=== PATIENT | female | born 1985 | race Caucasian/White ===

== ENCOUNTER 2021-03-02 01:37 | Emergency (ER) | payer BC, SELFPAY ==
--- NOTE | ~2021-03-02 | US_ITS ---
EXAMINATION: US pelvic complete w TV DATE: 03/02/2021 03:49 INDICATION: Right adnexal pain TECHNIQUE: Multiple transabdominal and endovaginal sonographic images of the pelvis were obtained. COMPARISON: None. FINDINGS: The uterus measures 7.0 x 3.6 x 4.1 cm. The IUD appears to be in expected position. The end ometrial complex measures 5 mm. The right ovary measures 2.8 x 1.6 x 1.5 cm. The left ovary measures 3.8 x 2.5 x 2.6 cm. There is a 2.1 x 1.6 x 1.9 cm cystic lesion of the left ovary with reticular inte rnal echoes, consistent with a hemorrhagic cyst. There is normal vascular flow in the ovaries. There is no free fluid in the pelvis. IMPRESSION: 1. No sonographic correlate for the patient's symptoms. Reviewed, dictated and finalized at location A.
[2021-03-02 01:41] VITALS: BP 110/81; PULSE 77; RESP 24; TEMP 36.1; O2SAT 100
[2021-03-02 02:04] LABS: Basophils Percent Auto 0.1 % (0.2-1.2); Eosinophils Absolute Auto 0.1 K/mm3 (0-0.3); Eosinophils Percent Auto 1.1 % (0-4.4); Hematocrit 40.1 % (37.0-47.0); Hemoglobin 12.9 g/dL (12.0-15.0); Immature Granulocyte Absolute 0.03 K/mm3 (0.00-0.031); Immature Granulocyte Percent A 0.3 % (0-0.5); Lymphocytes Absolute Auto 3.04 K/mm3 (0.9-3.2); Lymphocytes Percent Auto 31.1 % (18.3-44.2); Mean Corpuscular HGB Conc 32.2 g/dl (32-36); Mean Corpuscular Hemoglobin 29.9 pg (26-34); Mean Platelet Volume 10.1 fl (7.4-10.4); Monocytes Absolute Auto 0.6 K/mm3 (0.1-0.6); Monocytes Percent Auto 5.6 % (2.6-8.5); Neutrophils Percent Auto 61.8 % (45.5-73.1); Platelet Count Result 228 k/mm3 (150-375); Red Blood Count 4.31 M/mm3 (4.2-5.4); Red Cell Distribution Width 12.4 % (11.5-14.5); White Blood Count 9.8 K/mm3 (4.5-10.0)
[2021-03-02 02:13] LABS: Alanine Aminotransferase 14 U/L (4-35); Albumin Level 4.3 g/dL (3.5-5.1); Alkaline Phosphatase 57 U/L (38-126); Anion Gap 12 mmol/L (8-16); Aspartate Amino Transferase 18 U/L (14-36); Bilirubin,Total 0.2 mg/dL (0.2-1.3); Blood Urea Nitrogen 12 mg/dL (7-17); Calcium 9.2 mg/dL (8.4-10.2); Carbon Dioxide 25 mmol/L (22-30); Chloride 102 mmol/L (98-107); Estimated CRCL calculation 87 ml/min; Estimated Glomerular Filt Rate > 60; Glucose 126 mg/dL (65-110); Lipase 94 U/L (23-300); Potassium 3.6 mmol/L (3.4-5.0); Sodium 139 mmol/L (137-145)
[2021-03-02] MEDS: MORPHINE SULFATE (*CRX) 4 MG/ML INJ IV PUSH (02:18)
[2021-03-02] MEDS: ONDANSETRON INJ 4 MG/2 ML VIAL IV PUSH (02:19)
--- NOTE | 2021-03-02 02:34 | PC.NURSE ---
Pt has tried twice to provide urine preg, pt unable to void. States would like to try one more time and if unsuccessful will consent to straight cath.
[2021-03-02 03:05] VITALS: BP 109/74; PULSE 70; RESP 18; O2SAT 100
[2021-03-02 03:09] LABS: Add Urine Microscopic? YES; Appearance Urine Clear (Clear); Bacteria Urine Trace /hpf; Bilirubin Urine Negative (Negative); Blood Urine Negative (Negative); Color Urine Yellow (Yellow); Glucose Urine UA Negative (Negative); Ketones Urine Negative (Negative); Leukocyte Esterase Ur Negative LEU/UL (Negative); Mucus Urine Moderate /lpf; Nitrate Urine Negative (Negative); Protein Urine 1+ mg/dL (Negative); Squamous Epithelial Cell Urine Rare /hpf (Few); Urobilinogen Urine Negative mg/dL (<2.0); WBC Urine 0-3 /hpf
--- NOTE | 2021-03-02 04:27 | ED.GENADULT ---
HPI - General Adult General Chief complaint: [employer] NURSE Stated complaint: pelvic cramping (has IUD) Time Seen by Provider: 03/02/21 01:46 History of Present Illness HPI narrative: Patient is a 36-year-old female who presents ER with sudden onset lower abdominal pain. Right-sided. Pubic. No radiation. Sharp. Waxes and wanes in intensity. No urinary frequency urgency or dysuria. No vaginal bleeding or vaginal discharge. Patient does have an IUD. Pain worse with palpation or movement. Sexually active with one partner and not concerned about sexually transmitted infection. No vaginal discharge. Related Data Allergies Allergy/AdvReac Type Severity Reaction Status Date / Time erythromycin base Allergy Rash Verified 03/02/21 01:45 [From Erythrocin] Review of Systems Review of Systems: All systems reviewed & are unremarkable except as noted in HPI and below Constitutional: Constitutional: Denies chills, Denies fever(s) and Denies weakness Cardiovascular: Cardiovascular: Denies chest pain, Denies rapid heart rate and Denies radiating jaw, neck or arm pain Gastrointestinal: Gastrointestinal: Reports abdominal pain, Denies diarrhea, Denies nausea and Denies vomiting Genitourinary: Genitourinary: Denies abnormal vaginal bleeding, Denies nocturia, Denies dysuria, Reports pelvic pain and Denies vaginal discharge [facility] Past Medical History Medical History (Updated 03/02/21 @ 05:17 by Gregory Nicole MD) Healthy female adult Surgical History Surgical History (Updated 03/02/21 @ 04:29 by Gregory Nicole MD) History of section Social History Social History (Updated 03/02/21 @ 04:29 by Gregory Nciole MD) Smoking status: Never smoker Exam Narrative: GENERAL: Well-appearing, well-nourished, and in no acute distress. HEAD: Normocephalic, atraumatic. CHEST: Clear to auscultation. No respiratory distress. HEART: Regular rate and rhythm. Normal peripheral pulses. ABDOMEN: Soft, tender palpation right lower quadrant but more right pelvic in nature, nondistended. : Normal external genitalia, unremarkable appearing cervix without vaginal bleeding or vaginal discharge. Moderate discomfort with bimanual examination worse on the right than the left. EXTREMITIES: Normal range of motion. No edema. SKIN: Warm, dry, no rash. NEURO: Alert and oriented x3. PSYCH: Normal mood and affect. Course Course Emergency Course: Pain improved. Informed results. Discharge home. Vital Signs Vital signs: Vital Signs Temperature 97.0 F L 03/02/21 01:41 Pulse Rate 77 03/02/21 01:41 Respiratory Rate 24 H 03/02/21 01:41 Blood Pressure 110/81 03/02/21 01:41 Pulse Oximetry 100 03/02/21 01:41 Temperature 97.0 F L 03/02/21 01:41 Pulse Rate 61 03/02/21 04:45 Respiratory Rate 18 03/02/21 04:45 Blood Pressure 112/75 03/02/21 04:45 Pulse Oximetry 100 03/02/21 04:45 Medical Decision Making Vital Signs Vital Signs: Vital Signs Temperature 97.0 F L 03/02/21 01:41 Pulse Rate 77 03/02/21 01:41 Respiratory Rate 24 H 03/02/21 01:41 Blood Pressure 110/81 03/02/21 01:41 Pulse Oximetry 100 03/02/21 01:41 Temperature 97.0 F L 03/02/21 01:41 Pulse Rate 61 03/02/21 04:45 Respiratory Rate 18 03/02/21 04:45 Blood Pressure 112/75 03/02/21 04:45 Pulse Oximetry 100 03/02/21 04:45 Lab Data Result diagrams: 03/02/21 01:53 03/02/21 01:53 Labs: Lab Results 03/02/21 03/02/21 03/02/21 Range/Units 01:53 01:53 02:52 WBC 9.8 (4.5-10.0) K/mm3 RBC 4.31 (4.2-5.4) M/mm3 Hgb 12.9 (12.0-15.0) g/dL Hct 40.1 (37.0-47.0) % MCV 93.0 (80-100) fl MCH 29.9 (26-34) pg MCHC 32.2 (32-36) g/dl RDW 12.4 (11.5-14.5) % Plt Count 228 (150-375) k/mm3 MPV 10.1 (7.4-10.4) fl Immature Gran % (Auto) 0.3 (0-0.5) % Neut % (Auto) 61.8 (45.5-73.1) % Lymph % (Auto) 31.1 (18.3-44.2) % Gilchrist % (Auto
[2021-03-02 04:45] VITALS: BP 112/75; PULSE 61; RESP 18; O2SAT 100
[2021-03-02 05:24] VITALS: BP 109/77; PULSE 69; RESP 16; O2SAT 100
== END 2021-03-02 05:27 | disposition home or self-care (01) ==
PROVIDERS: Emergency Provider Emergency Medicine; PCP Physician Assistant
DX: N83.8 Other noninflammatory disorders of ovary, fallopian tube and broad ligament (principal)
CPT/HCPCS: 36415; 51701; 76830; 76856; 80053; 81001; 81025; 83690; 85025; 96374; 96375; 99284; J2270; J2405

== ENCOUNTER 2022-02-22 12:29 | Emergency (ER) | payer BC, SELFPAY ==
--- NOTE | ~2022-02-22 | CT_ITS ---
EXAMINATION: CT abdomen pelvis w con DATE: 02/22/2022 15:50 INDICATION: Right lower quadrant abdominal pain. TECHNIQUE: Computed tomography (CT) of the abdomen and pelvis was performed with 100 mL Omnipaque-350 intravenous contrast. Automated exposure control and iterative reconstruction technique were employe d. The dose-length product was 397.65 mGy-cm. COMPARISON: None FINDINGS: Lung bases are clear. Heart size is normal. No pericardial or pleural effusion. Several well-defined low-attenuation hepatic cysts measuring up to 1.5 cm. Spleen, pancreas, bilateral adrenal glands and kidneys are normal. Bowels including the appendix are normal. Bladder, anteverted uterus and left adn exa are unremarkable. 2.6 cm right adnexal cyst/follicle. Small amount of likely physiologic free flu id in the pelvis. No abscess or free intraperitoneal gas. Small fat-containing umbilical hernia. No p athologically enlarged abdominal or pelvic lymphadenopathy. Bones are unremarkable. IMPRESSION: 1. 2.6 cm right adnexal cyst/follicle and small amount of likely physiologic free fluid in the cul-de -sac. The 2. No acute intra-abdominal/pelvic process with normal appendix. Reviewed, dictated and finalized at location A. IMPRESSION: 1. 2.6 cm right adnexal cyst/follicle and small amount of likely physiologic fr ee fluid in the cul-de-sac. The 2. No acute intra-abdominal/pelvic process with normal appendix.
[2022-02-22 12:45] VITALS: BP 117/74; PULSE 79; RESP 14; TEMP 36.4; O2SAT 100
[2022-02-22 12:54] LABS: Basophils Percent Auto 0.2 % (0.2-1.2); Eosinophils Absolute Auto 0.1 K/mm3 (0-0.3); Eosinophils Percent Auto 1.1 % (0-4.4); Hematocrit 38.6 % (37.0-47.0); Hemoglobin 12.4 g/dL (12.0-15.0); Immature Granulocyte Absolute 0.02 K/mm3 (0.00-0.031); Immature Granulocyte Percent A 0.3 % (0-0.5); Lymphocytes Absolute Auto 1.68 K/mm3 (0.9-3.2); Lymphocytes Percent Auto 26.5 % (18.3-44.2); Mean Corpuscular HGB Conc 32.1 g/dl (32-36); Mean Corpuscular Hemoglobin 30.6 pg (26-34); Mean Corpuscular Volume 95.3 fl (80-100); Monocytes Absolute Auto 0.4 K/mm3 (0.1-0.6); Monocytes Percent Auto 5.7 % (2.6-8.5); Neutrophils Absolute Auto 4.2 K/mm3 (1.3-6.7); Neutrophils Percent Auto 66.2 % (45.5-73.1); Platelet Count Result 239 k/mm3 (150-375); Red Blood Count 4.05 M/mm3 (4.2-5.4); Red Cell Distribution Width 12.5 % (11.5-14.5); White Blood Count 6.3 K/mm3 (4.5-10.0)
[2022-02-22 13:04] LABS: Alanine Aminotransferase 11 U/L (6-35); Albumin Level 4.6 g/dL (3.5-5.1); Alkaline Phosphatase 61 U/L (38-126); Anion Gap 9 mmol/L (8-16); Aspartate Amino Transferase 19 U/L (14-36); Bilirubin,Total 0.4 mg/dL (0.2-1.3); Blood Urea Nitrogen 11 mg/dL (7-17); Carbon Dioxide 27 mmol/L (22-30); Chloride 101 mmol/L (98-107); Estimated CRCL calculation 99 ml/min; Estimated Glomerular Filt Rate > 60; Glucose 98 mg/dL (65-110); Lipase 70 U/L (23-300); Potassium 3.8 mmol/L (3.4-5.0); Sodium 137 mmol/L (137-145)
[2022-02-22 13:27] LABS: Appearance Urine Slightly Cloudy (Clear); Bilirubin Urine Negative (Negative); Color Urine Yellow (Yellow); Glucose Urine UA Negative (Negative); Ketones Urine Negative (Negative); Leukocyte Esterase Ur Negative LEU/UL (Negative); Nitrate Urine Negative (Negative); Protein Urine Negative (Negative); Urobilinogen Urine 0.2 mg/dL (<2.0)
[2022-02-22 13:37] LABS: Add Urine Microscopic? YES; Blood Urine Trace-Intact (Negative)
[2022-02-22 13:40] LABS: Mucus Urine Rare /lpf; RBC Urine 0-2 /hpf (0-2); Squamous Epithelial Cell Urine Rare /hpf (Few); WBC Urine 0-3 /hpf
--- NOTE | 2022-02-22 15:19 | ED.ABDPAIN ---
HPI - Abdominal Pain General Chief Complaint: Abdominal Pain Stated Complaint: abd pain Time Seen by Provider: 02/22/22 14:56 History of Present Illness HPI narrative: 37-year-old female history of ovarian cyst presents the emergency room with right lower quadrant pain. Patient states the stabbing pain began this morning, noticed similar to pain experienced when she had ovarian cyst. Denies any alleviating or aggravating factors. Denies any nausea or vomiting. Denies fever. Related Data Home Medications Medication Instructions Recorded Confirmed sertraline 50 mg tablet mg 02/22/22 02/22/22 Allergies Allergy/AdvReac Type Severity Reaction Status Date / Time erythromycin base Allergy Rash Verified 02/22/22 12:32 [From Erythrocin] Review of Systems Review of Systems: CONSTITUTIONAL: Denies fever, chills, or sweats. EYES: Denies visual changes, redness, or discharge. ENT: Denies rhinorrhea, congestion, sore throat, or otalgia. CARDIOVASCULAR: Denies chest pain, palpitations, or edema. RESPIRATORY: Denies cough or dyspnea. GASTROINTESTINAL: Reports abdominal pain GENITOURINARY: Denies dysuria or hematuria. SKIN: Denies rash or itching. MUSCULOSKELETAL: Denies back pain, joint pain, or myalgia. NEUROLOGIC: Denies headache, numbness, dizziness, or weakness. PSYCHIATRIC: Denies anxiety or depression. PMFSH Past Medical History Medical History Healthy female adult Surgical History Surgical History History of section Social History Social History Smoking status: Never smoker Exam Narrative: GENERAL: Well-appearing, well-nourished, no physical limitations, and in no acute distress. HEAD: Normocephalic, atraumatic. EYES: Conjunctivae normal, PERRLA and EOMI. CHEST: Clear to auscultation. No respiratory distress. No wheezes rales or rhonchi. No tenderness. HEART: Regular rate and rhythm. No murmur heard. Normal peripheral pulses. ABDOMEN: Soft, right lower quadrant tenderness, nondistended, normal active bowel sounds. Negative heel strike. Negative psoas and obturator signs BACK: No CVA tenderness; EXTREMITIES: Normal range of motion. No edema. No clubbing or cyanosis SKIN: Warm, dry, no rash. No noted wounds NEURO: No focal deficits. Alert and oriented x3. MAEW. CN's II-XI intact bilaterally, normal gait PSYCH: Cooperative. Normal mood and affect. Course Vital Signs Vital signs: Vital Signs Temperature 36.4 C 02/22/22 12:45 Pulse Rate 79 02/22/22 12:45 Respiratory Rate 14 02/22/22 12:45 Blood Pressure 117/74 02/22/22 12:45 Pulse Oximetry 100 02/22/22 12:45 Temperature 36.3 C L 02/22/22 15:47 Pulse Rate 76 02/22/22 15:47 Respiratory Rate 16 02/22/22 15:47 Blood Pressure 116/77 02/22/22 15:47 Pulse Oximetry 100 02/22/22 15:47 MDM - Abdominal Pain MDM Narrative Medical decision making narrative: 37-year-old female presenting with lower abdominal pain. Exam was without peritoneal signs. CBC and CMP were largely unremarkable. CT scan shows a 2 cm right adnexal cyst. No evidence of hepatobiliary disease or infectious process in the abdomen. Presentation is not consistent with any other acute or emergent causes of abdominal pain at this time. Recommended patient to take Tylenol ibuprofen as needed for discomfort and follow-up with her [employer]. Lab Data Result diagrams: 02/22/22 12:42 02/22/22 12:42 Labs: Lab Results 02/22/22 02/22/22 02/22/22 Range/Units 12:42 12:42 12:47 WBC 6.3 (4.5-10.0) K/mm3 RBC 4.05 L (4.2-5.4) M/mm3 Hgb 12.4 (12.0-15.0) g/dL Hct 38.6 (37.0-47.0) % MCV 95.3 (80-100) fl MCH 30.6 (26-34) pg MCHC 32.1 (32-36) g/dl RDW 12.5 (11.5-14.5) % Plt Count 239 (150-375) k/mm3 MPV 10.0
[2022-02-22] MEDS: KETOROLAC 30 MG/ML VIAL (*BKC) IV PUSH (15:30)
[2022-02-22] MEDS: SODIUM CHLORIDE 0.9% IV 1,000 ML 999 ML IV CONT (15:32)
[2022-02-22 15:47] VITALS: BP 116/77; PULSE 76; RESP 16; TEMP 36.3; O2SAT 100
[2022-02-22 16:42] VITALS: BP 114/76; PULSE 55; RESP 16; TEMP 36.4; O2SAT 100
== END 2022-02-22 16:43 | disposition home or self-care (01) ==
PROVIDERS: Emergency Medicine; Emergency Provider Nurse Practitioner Family; PCP Physician Assistant
DX: N83.201 Unspecified ovarian cyst, right side (principal)
CPT/HCPCS: 36415; 74177; 80053; 81001; 81025; 83690; 85025; 96361; 96374; 99284; J1885; J7030; Q9967